=== PATIENT | female | born 1950 | race Two or more races ===

== ENCOUNTER 2023-12-30 12:42 | Outpatient (OUT) | payer MEDICARE, BC, SELFPAY ==
--- NOTE | 2023-12-30 13:29 | ECG_ITS ---
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
== END 2023-12-30 12:43 | disposition home or self-care (01) ==
LOC: PST 12:49
PROVIDERS: Visit Provider Otolaryngology
DX: Z01.810 Encounter for preprocedural cardiovascular examination (principal); Z01.812 Encounter for preprocedural laboratory examination; R22.1 Localized swelling, mass and lump, neck; C50.919 Malignant neoplasm of unspecified site of unspecified female breast
CPT/HCPCS: 93005

== ENCOUNTER 2024-01-13 09:02 | Day surgery (SDC) | payer MEDICARE, SELFPAY ==
[2023-12-30 13:34] VITALS: BP 148/79; PULSE 77; RESP 16; TEMP 36.2; O2SAT 94; BMI 33.8
[2024-01-13] VITALS (8 sets, daily range): BP systolic 98–170; BP diastolic 52–86; PULSE 70–82; RESP 12–20; TEMP 36.2–36.4; O2SAT 93–95
--- NOTE | 2024-01-13 | OP_ITS ---
OPERATION DATE: 01/13/2024 PRIMARY CARE PHYSICIAN: Corinne Roger D.O. SURGEON: Kemi Singer M.D. PREOPERATIVE DIAGNOSIS: Left neck mass. POSTOPERATIVE DIAGNOSIS: Left neck mass. PROCEDURE: Removal of 1 cm subcutaneous nodule, just inferior to the left mastoid tip. ANESTHESIA: General endotracheal. COMPLICATIONS: None. FINDINGS: Firm nodule adherent to the dermis and extending into the deeper subcutaneous tissues. INDICATIONS: This 73-year-old woman presented with multiple subcutaneous nodules of the neck, suspicious for possible metastatic breast cancer, as the patient is known to have widely disseminated metastatic breast cancer. Excisional biopsy was requested by Dr. Guillen for additional tumor studies. PROCEDURE: Patient identified in the holding area and taken back to the OR, where she was placed in the supine position. After induction of anesthesia, the left neck was prepped and draped in a sterile fashion. An elliptical incision was made following relaxed skin lines of tension around the patient?s subcutaneous nodule. Dissection was carried out sharply into the subcutaneous tissues, and the nodule was removed and sent for pathologic analysis. Hemostasis was then achieved with electrocautery. The wound was copiously irrigated and closed with two deep interrupted 4-0 Vicryl sutures layers and a running 5-0 Monocryl stitch. The patient tolerated the procedure well, and she was awakened and taken to the recovery room in good condition. CC: Corinne Guillen M.D. ? [facility]
[2024-01-13] MEDS: LACTATED RINGER'S SOLUTION 1,000 ML 50 ML IV (09:37)
[2024-01-13] MEDS: LACTATED RINGER'S SOLUTION 1,000 ML 125 ML IV (12:06)
[2024-01-13] MEDS: LIDOCAINE HCL 1%-EPINEPHRINE 1:100,000 20 ML MDV INJ (12:08)
[2024-01-13] MEDS: BACITRACIN OINTMENT 28.4 GM TUBE 1 APPLIC TOPICAL (12:09)
[2024-01-13] MEDS: ACETAMINOPHEN 325 MG TABLET 650 MG PO (12:57)
--- NOTE | 2024-01-13 13:05 | PC.NURSE ---
Medicated with Tylenol as ordered
== END 2024-01-13 13:29 | disposition home or self-care (01) ==
PROVIDERS: Visit Provider Otolaryngology
PROC: (CPT 21555; principal; 2024-01-13 10:40)
DX: C79.89 Secondary malignant neoplasm of other specified sites (principal); C50.919 Malignant neoplasm of unspecified site of unspecified female breast; K21.9 Gastro-esophageal reflux disease without esophagitis; H35.30 Unspecified macular degeneration; M19.90 Unspecified osteoarthritis, unspecified site; Z90.710 Acquired absence of both cervix and uterus
CPT/HCPCS: 21555; 88305; 99999; J1094; J2704